=== PATIENT | male | born 1965 | race Two or more races ===

== ENCOUNTER 2020-08-24 23:42 | Emergency (ER) | payer MEDICAID ==
[~2020-08-24] VITALS: Ht 172.7 cm; Wt 81.6 kg
--- NOTE | 2020-08-24 23:58 | NUR ---
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 "THIRD EPISODE OF SYNCOPE WITHIN 12 DAYS" PT AAOX4, -SOB, NADN OTED. VSS. PENDING MD LEÓN
[2020-08-25] MEDS ORDERED: KETOROLAC TROMETHAMINE 15 MG/ML VIAL ONE (00:21)
[2020-08-25] MEDS ORDERED: KETOROLAC TROMETHAMINE INJ 30 MG/ML VIAL IV ONE (00:30)
[2020-08-25] MEDS ORDERED: IV NS 0.9% 1,000 ML BAG IV ONE (00:30)
[2020-08-25 00:43] LABS: BASOPHILS % (AUTO) 0.9 % (0.0-2.0); EOSINOPHILS % (AUTO) 4.2 % (0.0-6.0); HEMATOCRIT 39 % (39-51); HEMOGLOBIN 13.1 g/dL (13.5-17.5); LYMPHOCYTES # (AUTO) 1.2 /CMM (0.8-4.8); LYMPHOCYTES % (AUTO) 23.3 % (20.0-44.0); MEAN CORPUSCULAR HGB CONC 33 g/dl (31.0-36.0); MEAN CORPUSCULAR VOLUME 87 fL (80-96); MONOCYTES # (AUTO) 0.6 /CMM (0.1-1.30); MONOCYTES % (AUTO) 11.3 % (2.0-12.0); NEUTROPHILS % (AUTO) 60.3 % (43.0-81.0); PLATELET COUNT (AUTO) 271 /CMM (150-450); RED BLOOD CELL COUNT(AUTO) 4.52 MIL/uL (4.5-6.0)
[2020-08-25 00:53] LABS: CALCIUM, SERUM 8.6 mg/dL (8.5-10.1); CARBON DIOXIDE 29 mmol/L (21-32); CHLORIDE 107 mmol/L (98-107); CREATININE 0.8 mg/dL (0.6-1.3); GLUCOSE 91 mg/dL (74-106); POTASSIUM 4.1 mmol/L (3.5-5.1); SODIUM SERUM 143 mmol/L (136-145); UREA NITROGEN, BLOOD 16 mg/dL (7-18)
--- NOTE | 2020-08-25 01:38 | NUR ---
Patient discharged to home in stable condition. Written and verbal after care instructions given. Patient verbalizes understanding of instruction. IV removed. Catheter intact and site benign. Pressure and 4x4 applied to site. No bleeding noted.
[2020-08-25 01:42] VITALS: BP 130/75
== END 2020-08-25 01:42 | disposition home or self-care (01) ==
LOC: ER 23:48
DX: R55 Syncope and collapse (principal); Z88.8 Allergy status to other drugs, medicaments and biological substances
CPT/HCPCS: 36415; 71045; 73564; 80048; 84484; 85025; 93005; 96374; 99285; J1885; J7030